=== PATIENT | male | born 1955 | race African-American/Black ===

== ENCOUNTER → 2016-12-14 | Outpatient (CLI) | payer MEDICAID ==
[~2016-12-14] MED LIST: ASPI81CH43 PO; BACL10TA PO; ENAL5TAB92; GABA-339 PO; GABA300C8 PO; GLIM2TAB33; GLIM4TAB42 PO; IBUP600T27; METF-316 PO; NITR400A5 TL; TAMS0.4C36 PO; TOLT1TAB OR; TRIA37.577
[2016-12-14 10:00] VITALS: BP 152/70
[2016-12-14 10:40] VITALS: BP 148/68
[2016-12-14 12:14] LABS: Basophils # (auto) 0 uL; Basophils % (auto) 0.3 % (0.0-2.0); Eosinophils # (auto) 0.2 uL; Eosinophils % (auto) 4.3 % (0.0-7.0); Hematocrit 39.6 % (41.0-53.0); Hemoglobin 13.3 g/dL (13.5-17.5); Lymphocytes # (auto) 1.5 uL; Lymphocytes % (auto) 34.4 % (10.0-50.0); Mean Corpuscular Hemoglobin 30.2 pg (28.0-32.0); Mean Corpuscular Hgb Conc. 33.5 g/dL (32.0-36.0); Mean Corpuscular Volume 90.2 fL (80.0-100.0); Mean Platelet Volume 9.7 fL (7.4-10.4); Monocytes # (auto) 0.6 uL; Neutrophils # (auto) 2.2 uL; Platelet Count (auto) 232 10^3/uL (140-450); White Blood Cell 4.5 10^3/uL (4.4-10.8)
[2016-12-14 12:28] LABS: INR 0.98 (0.9-1.15); Partial Thromboplastin Time 27.3 sec (22.64-33.71); Prothrombin Time 10.1 sec (9.37-12.3)
[2016-12-14 12:45] LABS: BUN/Creatinine Ratio 8.1; Calcium 8.8 mg/dL (8.5-10.1); Potassium 4.7 mmol/L (3.5-5.1)
== END | disposition home or self-care (01) ==
LOC: Rad HDHVI 09:42
PROVIDERS: ATTEND Internal Medicine Cardiovascular Disease
DX: I10 Essential (primary) hypertension (principal); D64.9 Anemia, unspecified; R79.1 Abnormal coagulation profile
CPT/HCPCS: 36415; 71020; 80048; 82962; 85025; 85610; 85730; 93005; G0463

== ENCOUNTER 2016-12-16 09:08 | Inpatient (IN) | payer MEDICAID ==
[~2016-12-16] VITALS: Ht 185.4 cm; Wt 123.5 kg
[~2016-12-16 09:08] MED LIST changes: -ASPI81CH43 PO; -ENAL5TAB92; -GABA-339 PO; -GABA300C8 PO; -IBUP600T27; -NITR400A5 TL; -TRIA37.577
[2016-12-16] MEDS ORDERED: IOHEXOL 350 MG/ML 100ML IJ ONE (10:45)
[2016-12-16] MEDS ORDERED: LIDOCAINE 2%HCL (LOCAL ANESTH.) INJ 20ML MDV ONE (10:45)
[2016-12-16] MEDS ORDERED: fentaNYL CITRATE 100 MCG/2 ML VL ONE (11:55)
[2016-12-16] MEDS ORDERED: MIDAZOLAM HCL 1MG/1ML-2 ML VIAL ONE (11:55)
[2016-12-16] MEDS ORDERED: EPTIFIBATIDE INJ (2MG/ML) 10ML VIAL IV ONE (11:55)
[2016-12-16] MEDS ORDERED: SODIUM CHL 0.9% 50 ML ONE (11:55)
[2016-12-16] MEDS ORDERED: ANGIOMAX 250 MG VIAL IV ONE (11:55)
[2016-12-16] MEDS ORDERED: PRASUGREL HCL 10 MG TAB ONE ×2 (12:47→12:52)
[2016-12-16] MEDS ORDERED: ASPirin 81 mg TAB ONE (12:48)
[2016-12-16] MEDS ORDERED: HYDROmorphone HCL 2 MG/ML VL ONE (13:01)
[2016-12-16] MEDS ORDERED: SODIUM CHLORIDE 0.9% 1,000 ML IV SCH (13:28)
[2016-12-16] MEDS ORDERED: HYDROcodone-ACET 5/325MG TAB PO PRN (13:30)
[2016-12-16] MEDS ORDERED: NITROGLYCERIN 0.4 MG SL TAB SL PRN (13:30)
[2016-12-16] MEDS ORDERED: MORPHINE SULF INJ 2 MG/ML SYRINGE 1ML IV PRN (13:30)
[2016-12-16] MEDS ORDERED: ONDANSETRON HCL 4 MG/2 ML VIAL IV PRN (13:30)
[2016-12-16] MEDS ORDERED: ACETAMINOPHEN 500 MG TAB PO PRN (13:30)
[2016-12-16] MEDS ORDERED: DEXTROSE (50%) 50ML SYRG IV PRN (13:45)
[2016-12-16] MEDS ORDERED: BACLOFEN 10 MG TAB PO PRN (13:45)
[2016-12-16] MEDS: SODIUM CHLOR 0.9% PF (SALINE LOCK) 10ML VIAL IV SCH ×2 (14:00→21:20)
[2016-12-16 15:14] VITALS: BP 189/88
[2016-12-16 17:00] VITALS: BP 166/93
[2016-12-16] MEDS ORDERED: ACCU-CHEK COMFORT CURVE STRIP VI SCH (17:00)
[2016-12-16] MEDS: InsuLIN REG 1unit/0.01ml Soln (100units/ml) SC SCH ×2 (17:00→21:24)
[2016-12-16] MEDS ORDERED: METF-312 PO (18:48)
[2016-12-16] MEDS ORDERED: AMLO1TAB92 PO (18:50)
[2016-12-16] MEDS ORDERED: MONT10TA34 PO (18:51)
[2016-12-16] MEDS ORDERED: CHOL20007 PO (18:51)
[2016-12-16] MEDS ORDERED: NOR5T PO (18:52)
[2016-12-16] MEDS ORDERED: MORP30TA PO (18:53)
[2016-12-16] MEDS: GLIMEPIRIDE 2 MG TAB PO SCH (21:21)
[2016-12-16] MEDS: TOLTERODINE TARTRATE 1 MG TAB PO SCH (21:22)
[2016-12-16 21:30] VITALS: BP 141/95
[2016-12-16] MEDS ORDERED: GLIMEPIRIDE PO SCH (22:00)
[2016-12-17] MEDS: SODIUM CHLOR 0.9% PF (SALINE LOCK) 10ML VIAL IV SCH ×2 (05:08→14:00)
[2016-12-17 05:10] VITALS: BP 157/68
[2016-12-17] MEDS: InsuLIN REG 1unit/0.01ml Soln (100units/ml) SC SCH ×2 (06:17→11:28)
[2016-12-17 08:32] VITALS: BP 130/96
[2016-12-17] MEDS: TOLTERODINE TARTRATE 1 MG TAB PO SCH (09:55)
[2016-12-17] MEDS: GLIMEPIRIDE 2 MG TAB PO SCH (09:56)
[2016-12-17] MEDS ORDERED: TAMSULOSIN HYDROCHLORIDE 0.4 MG CAP PO SCH (10:00)
[2016-12-17] MEDS ORDERED: PRASUGREL HCL 10 MG TAB PO SCH (10:00)
[2016-12-17 13:00] VITALS: BP 130/108
[2016-12-17 13:56] VITALS: BP 130/96
== END 2016-12-17 14:25 | disposition home or self-care (01) | DRG 175 ==
LOC: CATH 09:08 → TELE-E-ADS 09:09 → TELE-WESTW 15:14
PROVIDERS: ADMIT Internal Medicine Cardiovascular Disease; ATTEND Internal Medicine Cardiovascular Disease
PROC: 027135Z Dilation of Coronary Artery, Two Arteries with Two Drug-eluting Intraluminal Devices, Percutaneous Approach (ICD-10-PCS; principal; 2016-12-16)
PROC: 02703ZZ Dilation of Coronary Artery, One Artery, Percutaneous Approach (ICD-10-PCS; 2016-12-16)
PROC: 4A023N7 Measurement of Cardiac Sampling and Pressure, Left Heart, Percutaneous Approach (ICD-10-PCS; 2016-12-16)
PROC: B2111ZZ Fluoroscopy of Multiple Coronary Arteries using Low Osmolar Contrast (ICD-10-PCS; 2016-12-16)
DX: I25.10 Atherosclerotic heart disease of native coronary artery without angina pectoris (principal); I10 Essential (primary) hypertension; I49.8 Other specified cardiac arrhythmias; E78.5 Hyperlipidemia, unspecified; Z82.49 Family history of ischemic heart disease and other diseases of the circulatory system
CPT/HCPCS: 82962; 92920; 92928; 92929; 93458; 99152; C1874; C1887; J1815; J2250

== ENCOUNTER → 2017-09-27 | Outpatient (CLI) | payer MEDICAID ==
[~2017-09-27] MED LIST changes: +AMLO1TAB92 PO; +ASPirin 81 mg TAB PO ONE; +CHOL20007 PO; +HYDR-4683 PO; -METF-316 PO; +METF-370 PO; +METF-372 PO; +MONT10TA34 PO; +MORP30TA PO; +NITROGLYCERIN 0.4 MG SL TAB SL ONE; +SODIUM CHLOR 0.9% PF (SALINE LOCK) 10ML VIAL IV ONE
[2017-09-27 11:00] VITALS: BP 148/80
== END | disposition home or self-care (01) ==
LOC: CHF HDHVI 10:16
PROVIDERS: ATTEND Internal Medicine Cardiovascular Disease
DX: I20.9 Angina pectoris, unspecified (principal); I10 Essential (primary) hypertension; E11.9 Type 2 diabetes mellitus without complications; D64.9 Anemia, unspecified
CPT/HCPCS: 82962; 93005; G0463

== ENCOUNTER → 2017-12-26 | Outpatient (CLI) | payer MEDICAID ==
[~2017-12-26] MED LIST changes: +AMLO5TAB2 PO; +ASPI81TA13 PO; -ASPirin 81 mg TAB PO ONE; +BUDE0.253 IN; +HYDR-531 PO; +LEVEMIR SC; +LOSA100T27 PO; +NITR0.4S29 SL; -NITROGLYCERIN 0.4 MG SL TAB SL ONE; +SIMV10TA84 PO; -SODIUM CHLOR 0.9% PF (SALINE LOCK) 10ML VIAL IV ONE; -TOLT1TAB OR; +TOLT1TAB14 OR; +TRIA75TA55 PO; +TRIATAB3 PO
[2017-12-26 10:30] VITALS: BP 133/76
[2017-12-26 11:12] VITALS: BP 140/71
[2017-12-26 16:04] LABS: Basophils # (auto) 0 uL; Basophils % (auto) 0.5 % (0.0-2.0); Eosinophils # (auto) 0.2 uL; Eosinophils % (auto) 3.8 % (0.0-7.0); Hemoglobin 13.2 g/dL (13.5-17.5); Lymphocytes # (auto) 1.4 uL; Lymphocytes % (auto) 28.1 % (10.0-50.0); Mean Corpuscular Hemoglobin 31.2 pg (28.0-32.0); Mean Corpuscular Hgb Conc. 33.8 g/dL (32.0-36.0); Mean Corpuscular Volume 92.5 fL (80.0-100.0); Monocytes # (auto) 0.7 uL; Monocytes % (auto) 13.6 % (0.0-12.0); Neutrophils # (auto) 2.7 uL; Nucleated Red Blood Cells % 0.2 %; Platelet Count (auto) 188 10^3/uL (140-450); Red Blood Cells 4.22 10^6/uL (4.5-5.90); Red Cell Distribution Width 14.1 % (11.8-14.3)
[2017-12-26 16:10] LABS: BUN/Creatinine Ratio 15.1; Calcium 8.3 mg/dL (8.5-10.1); Potassium 3.7 mmol/L (3.5-5.1)
[2017-12-26 16:13] LABS: INR 0.95 (0.9-1.15); Partial Thromboplastin Time 29.2 sec (22.64-33.71); Prothrombin Time 10.3 sec (9.37-12.3)
== END | disposition home or self-care (01) ==
LOC: Rad HDHVI 10:14
PROVIDERS: ATTEND Internal Medicine Cardiovascular Disease
DX: Z01.812 Encounter for preprocedural laboratory examination (principal); D64.9 Anemia, unspecified; R79.1 Abnormal coagulation profile; I10 Essential (primary) hypertension
CPT/HCPCS: 36415; 71046; 80048; 85025; 85610; 85730; 93005; G0463

== ENCOUNTER 2017-12-29 07:27 | Inpatient (IN) | payer MEDICAID ==
[~2017-12-29] VITALS: Ht 185.4 cm; Wt 118.6 kg
[~2017-12-29 07:27] MED LIST changes: -AMLO1TAB92 PO; -BACL10TA PO; -CHOL20007 PO; -GLIM2TAB33; -GLIM4TAB42 PO; -HYDR-4683 PO; -METF-370 PO; -METF-372 PO; -MONT10TA34 PO; -MORP30TA PO; -TAMS0.4C36 PO; -TOLT1TAB14 OR; -TRIATAB3 PO
[2017-12-29] MEDS ORDERED: ceFAZolin 1GM/50ML 50 ML IV ONE (08:03)
[2017-12-29] MEDS ORDERED: LIDOCAINE HCL 2 %PF INJ 10ML AMP IJ ONE (08:39)
[2017-12-29] MEDS ORDERED: fentaNYL CITRATE 100 MCG/2 ML VL ONE (08:43)
[2017-12-29] MEDS ORDERED: MIDAZOLAM HCL 1MG/1ML-2 ML VIAL ONE (08:43)
[2017-12-29] MEDS ORDERED: VANCOMYCIN 1GM/250ML 250 ML IV ONE (08:51)
[2017-12-29] MEDS ORDERED: VANCOMYCIN HCL 1000 MG VL ONE (08:51)
[2017-12-29] MEDS ORDERED: IOHEXOL 350 MG/ML 100ML IJ ONE (09:21)
[2017-12-29] MEDS ORDERED: TRIAMTERENE/HCTZ 75/50MG TABLET PO SCH (10:00)
[2017-12-29] MEDS: SIMVASTATIN 10 MG PO SCH (10:00)
[2017-12-29] MEDS ORDERED: ceFAZolin 1GM/50ML 50 ML IV SCH (10:00)
[2017-12-29] MEDS ORDERED: MORPHINE SULFATE 4 MG/ML SYR/VIAL IV PRN (10:00)
[2017-12-29] MEDS ORDERED: NITROGLYCERIN 0.4 MG SL TAB SL PRN (10:00)
[2017-12-29] MEDS ORDERED: DEXTROSE (50%) 50ML SYRG IV PRN (10:00)
[2017-12-29] MEDS ORDERED: ACETAMINOPHEN 325 MG TAB PO PRN (10:00)
[2017-12-29] MEDS ORDERED: LORazepam 0.5 MG TAB PO PRN (10:00)
[2017-12-29] MEDS ORDERED: amLODIPine BESYLATE 5 MG TAB ONE (10:26)
[2017-12-29] MEDS ORDERED: TRIAMTERENE/HCTZ 37.5/25 MG CAP ONE (10:26)
[2017-12-29] MEDS ORDERED: LOSARTAN POTASSIUM 50 MG TAB ONE (10:27)
[2017-12-29] MEDS: TRIAMTERENE/HCTZ 37.5/25 MG CAP PO SCH (10:30)
[2017-12-29] MEDS: LOSARTAN POTASSIUM 50 MG TAB PO SCH (10:30)
[2017-12-29] MEDS: amLODIPine BESYLATE 5 MG TAB PO SCH (10:30)
[2017-12-29] MEDS ORDERED: TRIATAB3 PO (10:35)
[2017-12-29] MEDS: InsuLIN REG 1unit/0.01ml Soln (100units/ml) SC SCH ×3 (10:45→22:06)
[2017-12-29] MEDS: ACCU-CHEK COMFORT CURVE STRIP VI SCH ×3 (10:46→22:06)
[2017-12-29] MEDS: HYDROcodone-ACET 5/325MG TAB PO PRN ×2 (10:46→15:19)
[2017-12-29 12:00] VITALS: BP 157/80
[2017-12-29 13:00] VITALS: BP 157/80
[2017-12-29] MEDS: ceFAZolin 1GM/50ML 50 ML IV SCH ×2 (14:14→22:07)
[2017-12-29 17:15] VITALS: BP 128/78
[2017-12-29] MEDS ORDERED: VANCOMYCIN 1GM/250ML 250 ML IV SCH (22:00)
[2017-12-29 22:28] VITALS: BP 127/80
[2017-12-30 05:05] VITALS: BP 141/76
[2017-12-30] MEDS: ceFAZolin 1GM/50ML 50 ML IV SCH (05:50)
[2017-12-30] MEDS: InsuLIN REG 1unit/0.01ml Soln (100units/ml) SC SCH (06:47)
[2017-12-30] MEDS: ACCU-CHEK COMFORT CURVE STRIP VI SCH (06:47)
[2017-12-30] MEDS ORDERED: INSULIN LANTUS (GLARGINE) 1 /0.01ml (100units/ml) SC SCH (07:00)
[2017-12-30 08:30] VITALS: BP 143/74
[2017-12-30 08:46] LABS: Basophils # (auto) 0 uL; Basophils % (auto) 0.2 % (0.0-2.0); Eosinophils # (auto) 0.1 uL; Eosinophils % (auto) 2.3 % (0.0-7.0); Hematocrit 41.7 % (41.0-53.0); Hemoglobin 13.9 g/dL (13.5-17.5); Lymphocytes # (auto) 1.8 uL; Lymphocytes % (auto) 28.5 % (10.0-50.0); Mean Corpuscular Hemoglobin 30.6 pg (28.0-32.0); Mean Corpuscular Hgb Conc. 33.2 g/dL (32.0-36.0); Mean Corpuscular Volume 92.1 fL (80.0-100.0); Monocytes # (auto) 0.7 uL; Monocytes % (auto) 10.5 % (0.0-12.0); Neutrophils # (auto) 3.6 uL; Neutrophils % (auto) 58.5 % (37.0-80.0); Nucleated Red Blood Cells % 0.1 %; Platelet Count (auto) 213 10^3/uL (140-450); Red Blood Cells 4.53 10^6/uL (4.5-5.90); White Blood Cell 6.2 10^3/uL (4.4-10.8)
[2017-12-30 09:04] LABS: BUN/Creatinine Ratio 12.9; Calcium 8.4 mg/dL (8.5-10.1); Potassium 3.7 mmol/L (3.5-5.1)
[2017-12-30] MEDS: amLODIPine BESYLATE 5 MG TAB PO SCH (09:36)
[2017-12-30] MEDS: LOSARTAN POTASSIUM 50 MG TAB PO SCH (09:37)
[2017-12-30] MEDS: SIMVASTATIN 10 MG PO SCH (09:37)
[2017-12-30] MEDS: TRIAMTERENE/HCTZ 37.5/25 MG CAP PO SCH (09:37)
[2017-12-30 11:24] VITALS: BP 143/74
== END 2017-12-30 11:45 | disposition home or self-care (01) | DRG 171 ==
LOC: CATH 07:27 → TELE-EAST 07:28
PROVIDERS: ADMIT Internal Medicine Cardiovascular Disease; ATTEND Internal Medicine Cardiovascular Disease
PROC: 0JH606Z Insertion of Pacemaker, Dual Chamber into Chest Subcutaneous Tissue and Fascia, Open Approach (ICD-10-PCS; principal; 2017-12-29)
PROC: 02HK3JZ Insertion of Pacemaker Lead into Right Ventricle, Percutaneous Approach (ICD-10-PCS; 2017-12-29)
PROC: 02H63JZ Insertion of Pacemaker Lead into Right Atrium, Percutaneous Approach (ICD-10-PCS; 2017-12-29)
DX: I49.5 Sick sinus syndrome (principal); I10 Essential (primary) hypertension; E78.5 Hyperlipidemia, unspecified; I73.9 Peripheral vascular disease, unspecified
CPT/HCPCS: 33208; 36415; 71045; 80048; 82962; 85025; 93005; 99152; C1785; J0690; J1815; J2250

== ENCOUNTER 2018-02-14 12:07 | Emergency (ER) | payer MEDICAID ==
[~2018-02-14] VITALS: Ht 185.4 cm; Wt 117.9 kg
[~2018-02-14 12:07] MED LIST changes: -TRIA75TA55 PO; +TRIATAB3 PO
[2018-02-14 12:46] VITALS: BP 134/82
== END 2018-02-14 14:26 | disposition left against medical advice (07) ==
LOC: ER 12:07
DX: M79.671 Pain in right foot (principal); E11.9 Type 2 diabetes mellitus without complications; I11.0 Hypertensive heart disease with heart failure; I50.9 Heart failure, unspecified; E78.5 Hyperlipidemia, unspecified; Z79.4 Long term (current) use of insulin; Z79.82 Long term (current) use of aspirin; Z83.3 Family history of diabetes mellitus; Z95.0 Presence of cardiac pacemaker

== ENCOUNTER 2018-11-28 17:00 | Emergency (ER) | payer MEDICAID ==
[~2018-11-28] VITALS: Ht 185.4 cm; Wt 116.6 kg
[~2018-11-28 17:00] MED LIST changes: +AMLO5TAB13 PO; -AMLO5TAB2 PO; +ASPI1TAB19 PO; -ASPI81TA13 PO; +LOSA-49 PO; -LOSA100T27 PO
[2018-11-28 17:06] VITALS: BP 164/88
[2018-11-28 17:26] LABS: Basophils # (auto) 0 uL; Basophils % (auto) 0.5 % (0.0-2.0); Eosinophils # (auto) 0.1 uL; Eosinophils % (auto) 1.8 % (0.0-7.0); Hematocrit 44.9 % (41.0-53.0); Hemoglobin 15.2 g/dL (13.5-17.5); Lymphocytes # (auto) 1.9 uL; Lymphocytes % (auto) 25.5 % (10.0-50.0); Mean Corpuscular Hgb Conc. 33.8 g/dL (32.0-36.0); Mean Corpuscular Volume 91.6 fL (80.0-100.0); Monocytes # (auto) 0.9 uL; Monocytes % (auto) 12.1 % (0.0-12.0); Neutrophils # (auto) 4.5 uL; Neutrophils % (auto) 60.1 % (37.0-80.0); Platelet Count (auto) 247 10^3/uL (140-450); Red Blood Cells 4.91 10^6/uL (4.5-5.90); Red Cell Distribution Width 14.1 % (11.8-14.3); White Blood Cell 7.5 10^3/uL (4.4-10.8)
[2018-11-28 17:43] LABS: Anion Gap 7 (5-15); Blood Urea Nitrogen 15 mg/dL (7-18); Calcium 8.6 mg/dL (8.5-10.1); Carbon Dioxide 23 mmol/L (21-32); Chloride 109 mmol/L (98-107); Glucose 126 mg/dL (74-106); Magnesium 2.3 mg/dL (1.6-2.6); Potassium 3.5 mmol/L (3.5-5.1); Sodium 139 mmol/L (136-145)
[2018-11-28 17:49] LABS: Alanine Aminotransferase 28 U/L (16-61); Alkaline Phosphatase 121 U/L (45-117); Aspartate Aminotransferase 18 U/L (15-37); BUN/Creatinine Ratio 12.4; Bilirubin, Total 0.3 mg/dL (0.2-1.0); GFR African American 78 mL/min; GFR Non-African American 65 mL/min; Total Protein 7.7 g/dL (6.4-8.2)
== END 2018-11-29 00:23 | disposition left against medical advice (07) ==
LOC: ER 17:00
DX: R07.9 Chest pain, unspecified (principal); Z53.21 Procedure and treatment not carried out due to patient leaving prior to being seen by health care provider
CPT/HCPCS: 36415; 80053; 83735; 84484; 85025; 93005

== ENCOUNTER 2019-02-10 18:35 | Emergency (ER) | payer MEDICAID ==
[~2019-02-10] VITALS: Ht 185.4 cm; Wt 120.2 kg
[2019-02-10 19:26] LABS: Chloride 113 mmol/L (98-107); Potassium 3.6 mmol/L (3.5-5.1); Sodium 140 mmol/L (136-145)
[2019-02-10 19:27] LABS: Basophils # (auto) 0 uL; Basophils % (auto) 0.3 % (0.0-2.0); Eosinophils # (auto) 0.1 uL; Eosinophils % (auto) 1.3 % (0.0-7.0); Hematocrit 44.4 % (41.0-53.0); Hemoglobin 15.1 g/dL (13.5-17.5); Lymphocytes # (auto) 1.8 uL; Mean Corpuscular Hgb Conc. 33.9 g/dL (32.0-36.0); Mean Corpuscular Volume 91.4 fL (80.0-100.0); Monocytes % (auto) 15.4 % (0.0-12.0); Neutrophils # (auto) 3.6 uL; Nucleated Red Blood Cells % 0.1 %; Platelet Count (auto) 229 10^3/uL (140-450); Red Blood Cells 4.86 10^6/uL (4.5-5.90); Red Cell Distribution Width 13.8 % (11.8-14.3); White Blood Cell 6.6 10^3/uL (4.4-10.8)
[2019-02-10 19:29] LABS: Albumin 3.9 g/dL (3.4-5.0); Anion Gap 9 (5-15); Blood Urea Nitrogen 11 mg/dL (7-18); Calcium 8.4 mg/dL (8.5-10.1); Carbon Dioxide 18 mmol/L (21-32); Glucose 141 mg/dL (74-106)
[2019-02-10 19:33] LABS: Alanine Aminotransferase 27 U/L (16-61); Aspartate Aminotransferase 23 U/L (15-37); BUN/Creatinine Ratio 10.3; Bilirubin, Total 0.5 mg/dL (0.2-1.0); GFR African American 90 mL/min; GFR Non-African American 74 mL/min; Total Protein 7.7 g/dL (6.4-8.2)
[2019-02-10 19:34] LABS: Alkaline Phosphatase 136 U/L (45-117)
[2019-02-10 19:51] LABS: INR 0.96 (0.9-1.15); Partial Thromboplastin Time 29.4 sec (23.78-33.04); Prothrombin Time 10.3 sec (9.27-12.13)
[2019-02-10] MEDS ORDERED: IOHEXOL 300 MG/ML 100ML BOTTLE IJ ONE (21:42)
[2019-02-10 21:50] LABS: Urine Bacteria NONE SEEN /hpf (None Seen); Urine Blood Negative /uL (Negative); Urine Mucus FEW (None Seen); Urine Specific Gravity 1.031 (1.001-1.035); Urine WBC 2 /hpf (0 - 3)
[2019-02-10 22:04] LABS: Amylase 92 U/L (25-115); Lipase 733 U/L (73-393)
[2019-02-10 22:45] VITALS: BP 110/58
== END 2019-02-10 23:20 | disposition home or self-care (01) ==
LOC: EDUNIT# 18:35 → EDBD 18:35 → ER 18:35
DX: K40.20 Bilateral inguinal hernia, without obstruction or gangrene, not specified as recurrent (principal); I11.0 Hypertensive heart disease with heart failure; I50.9 Heart failure, unspecified; E11.9 Type 2 diabetes mellitus without complications; E78.00 Pure hypercholesterolemia, unspecified; I25.2 Old myocardial infarction; Z79.4 Long term (current) use of insulin; Z79.82 Long term (current) use of aspirin; Z79.899 Other long term (current) drug therapy
CPT/HCPCS: 36415; 70450; 71045; 74177; 80053; 81001; 82150; 83605; 83690; 84484; 85025; 85610; 85730; 93005; 99284; Q9967

== ENCOUNTER → 2019-03-20 | Outpatient (CLI) | payer MEDICAID | END | disposition home or self-care (01) | LOC: Rad HDHVI 09:11 | PROVIDERS: ATTEND Internal Medicine Cardiovascular Disease | DX: J44.9 Chronic obstructive pulmonary disease, unspecified (principal); I49.5 Sick sinus syndrome; I11.0 Hypertensive heart disease with heart failure; I50.9 Heart failure, unspecified | CPT/HCPCS: 93306 ==

== ENCOUNTER 2019-09-11 23:56 | Emergency (ER) | payer MEDICAID ==
[~2019-09-11] VITALS: Ht 185.4 cm; Wt 124.7 kg
[~2019-09-11 23:56] MED LIST changes: -AMLO5TAB13 PO; +AMLO5TAB15 PO; +LOSA-39 PO; -LOSA-49 PO
[2019-09-12 00:42] LABS: Basophils # (auto) 0 uL; Basophils % (auto) 0.2 % (0.0-2.0); Eosinophils # (auto) 0.2 uL; Eosinophils % (auto) 2.4 % (0.0-7.0); Hemoglobin 13.6 g/dL (13.5-17.5); Lymphocytes # (auto) 2.1 uL; Lymphocytes % (auto) 29.7 % (10.0-50.0); Mean Corpuscular Hemoglobin 31.8 pg (28.0-32.0); Mean Corpuscular Hgb Conc. 34.9 g/dL (32.0-36.0); Monocytes # (auto) 0.9 uL; Monocytes % (auto) 12.4 % (0.0-12.0); Neutrophils # (auto) 3.9 uL; Neutrophils % (auto) 55.3 % (37.0-80.0); Platelet Count (auto) 218 10^3/uL (140-450); Red Blood Cells 4.28 10^6/uL (4.5-5.90); Red Cell Distribution Width 13.7 % (11.8-14.3); White Blood Cell 7.1 10^3/uL (4.4-10.8)
[2019-09-12 01:03] LABS: Alanine Aminotransferase 24 U/L (16-61); Albumin 3.7 g/dL (3.4-5.0); Anion Gap 8 (5-15); Aspartate Aminotransferase 13 U/L (15-37); BUN/Creatinine Ratio 11.4; Blood Urea Nitrogen 13 mg/dL (7-18); Calcium 8.3 mg/dL (8.5-10.1); Carbon Dioxide 20 mmol/L (21-32); Chloride 108 mmol/L (98-107); GFR African American 84 mL/min; GFR Non-African American 69 mL/min; Glucose 179 mg/dL (74-106); Potassium 3.8 mmol/L (3.5-5.1); Sodium 136 mmol/L (136-145)
[2019-09-12 01:08] LABS: Alkaline Phosphatase 123 U/L (45-117); Bilirubin, Total 0.2 mg/dL (0.2-1.0); Total Protein 7.1 g/dL (6.4-8.2)
[2019-09-12] MEDS ORDERED: LIDOCAINE W/ EPINEPHRINE 2% INJ 20ML VIAL IJ ONE (01:30)
[2019-09-12 02:34] LABS: Urine Bacteria NONE SEEN /hpf (None Seen); Urine Blood Negative /uL (Negative); Urine Specific Gravity 1.002 (1.001-1.035); Urine WBC <1 /hpf (0 - 3)
[2019-09-12 02:41] LABS: Amphetamine Screen, Urine NEGATIVE (NEGATIVE); Barbiturate Scree,Urine NEGATIVE (NEGATIVE); Benzodiazephine Screen, Urine NEGATIVE (NEGATIVE); Cannabinoid Screen, Urine POSITIVE (NEGATIVE); Cocaine Screen, Urine NEGATIVE (NEGATIVE); Opiate Scree,Urine NEGATIVE (NEGATIVE); Phencyclidine Screen, Urine NEGATIVE (NEGATIVE)
[2019-09-12 04:11] VITALS: BP 155/83
== END 2019-09-12 04:19 | disposition home or self-care (01) ==
LOC: ER 23:57
DX: S01.02XA Laceration with foreign body of scalp, initial encounter (principal); I95.1 Orthostatic hypotension; R51 Headache; I11.0 Hypertensive heart disease with heart failure; I50.9 Heart failure, unspecified; E11.9 Type 2 diabetes mellitus without complications; E78.5 Hyperlipidemia, unspecified; I25.2 Old myocardial infarction; F12.10 Cannabis abuse, uncomplicated; Z95.0 Presence of cardiac pacemaker; Z98.61 Coronary angioplasty status; W06.XXXA Fall from bed, initial encounter; Y93.89 Activity, other specified; Y92.092 Bedroom in other non-institutional residence as the place of occurrence of the external cause; Y99.8 Other external cause status
CPT/HCPCS: 12002; 36415; 70450; 71045; 80053; 80307; 80320; 81001; 84484; 85025; 93005

== ENCOUNTER → 2021-03-04 | Outpatient (CLI) | payer MEDICAID ==
[~2021-03-04] VITALS: Ht 185.4 cm; Wt 120.7 kg
[~2021-03-04] MED LIST changes: +ADENOSINE 101 MG in GIVE UN-DILUTED 0 ML IV ONE; +ADENOSINE 90 MG/30 ML INJ IV ONE; +AMLO-489 PO; -AMLO5TAB15 PO
== END | disposition home or self-care (01) ==
LOC: Rad HDHVI 08:00
PROVIDERS: ATTEND Internal Medicine Cardiovascular Disease
DX: I49.5 Sick sinus syndrome (principal); R60.9 Edema, unspecified; R06.02 Shortness of breath; R07.89 Other chest pain; E78.5 Hyperlipidemia, unspecified; Z95.0 Presence of cardiac pacemaker
CPT/HCPCS: 78452; 93005; 96374; 96375; A9500; J0153

== ENCOUNTER → 2022-07-05 | Outpatient (CLI) | payer MEDICARE, MEDICAID ==
[~2022-07-05] MED LIST changes: -ADENOSINE 101 MG in GIVE UN-DILUTED 0 ML IV ONE; -ADENOSINE 90 MG/30 ML INJ IV ONE
[2022-07-05 13:34] LABS: Basophils # (auto) 0 10 ^3/uL (0-0.2); Basophils % (auto) 0.2 % (0.0-2.0); Eosinophils # (auto) 0.1 10 ^3/uL (0-0.8); Hemoglobin 14.1 g/dL (13.5-17.5); Lymphocytes # (auto) 1.9 10 ^3/uL (0.4-5.4); Lymphocytes % (auto) 36.6 % (10.0-50.0); Mean Corpuscular Hemoglobin 29.4 pg (28.0-32.0); Mean Corpuscular Hgb Conc. 32.8 g/dL (32.0-36.0); Mean Corpuscular Volume 89.7 fL (80.0-100.0); Monocytes # (auto) 0.7 10 ^3/uL (0-1.3); Monocytes % (auto) 13.7 % (0.0-12.0); Neutrophils # (auto) 2.5 10 ^3/uL (1.6-8.6); Neutrophils % (auto) 47.5 % (37.0-80.0); Nucleated Red Blood Cells % 0.1 %; Red Blood Cells 4.79 10^6/uL (4.5-5.90); Red Cell Distribution Width 14.9 % (11.8-14.3); White Blood Cell 5.2 10^3/uL (4.4-10.8)
[2022-07-05 13:38] LABS: Urine Blood Negative /uL (Negative); Urine Specific Gravity 1.028 (1.001-1.035)
[2022-07-05 13:41] LABS: Albumin 3.7 g/dL (3.4-5.0); Anion Gap 5 (5-15); Blood Urea Nitrogen 11 mg/dL (7-18); Calcium 8.9 mg/dL (8.5-10.1); Carbon Dioxide 22 mmol/L (21-32); Chloride 112 mmol/L (98-107); Sodium 139 mmol/L (136-145)
[2022-07-05 13:48] LABS: Alanine Aminotransferase 26 U/L (16-61); Alkaline Phosphatase 99 U/L (45-117); Aspartate Aminotransferase 14 U/L (15-37); BUN/Creatinine Ratio 9.6; Bilirubin, Direct < 0.1 mg/dL (0-0.2); Bilirubin, Total 0.2 mg/dL (0.2-1.0); Cholesterol 183 mg/dL (< 200); GFR African American 82 mL/min; GFR Non-African American 68 mL/min; Glucose 131 mg/dL (74-106); HDL Cholesterol 37 mg/dL (40-59); LDL Cholesterol 124 mg/dL (< 100); Total Protein 7.2 g/dL (6.4-8.2); Triglycerides 138 mg/dL (< 150)
== END | disposition home or self-care (01) ==
LOC: Rad HDHVI 11:23
PROVIDERS: ATTEND Internal Medicine Cardiovascular Disease
DX: M19.012 Primary osteoarthritis, left shoulder (principal); C61 Malignant neoplasm of prostate; I10 Essential (primary) hypertension; E55.9 Vitamin D deficiency, unspecified; D51.3 Other dietary vitamin B12 deficiency anemia; D64.9 Anemia, unspecified; E11.9 Type 2 diabetes mellitus without complications; R00.2 Palpitations; R53.1 Weakness; R30.0 Dysuria
CPT/HCPCS: 36415; 73030; 80048; 80061; 80076; 81003; 82306; 83036; 84153; 84403; 84443; 85025

== ENCOUNTER → 2022-07-08 | Outpatient (CLI) | payer MEDICARE, MEDICAID | END | disposition home or self-care (01) | LOC: Rad HDHVI 12:50 | PROVIDERS: ATTEND Internal Medicine Cardiovascular Disease | DX: I35.8 Other nonrheumatic aortic valve disorders (principal); R06.02 Shortness of breath; E78.5 Hyperlipidemia, unspecified | CPT/HCPCS: 93306 ==

== ENCOUNTER → 2022-07-22 | Outpatient (CLI) | payer MEDICARE, MEDICAID ==
[~2022-07-22] VITALS: Ht 185.4 cm; Wt 120.2 kg
[~2022-07-22] MED LIST changes: +ADENOSINE 101 MG in GIVE UN-DILUTED 0 ML IV ONE; +ADENOSINE 90 MG/30 ML INJ IV ONE
== END | disposition home or self-care (01) ==
LOC: Rad HDHVI 08:47
PROVIDERS: ATTEND Internal Medicine Cardiovascular Disease
DX: I34.0 Nonrheumatic mitral (valve) insufficiency (principal); R07.9 Chest pain, unspecified; R06.02 Shortness of breath; I49.5 Sick sinus syndrome; J44.9 Chronic obstructive pulmonary disease, unspecified; I25.2 Old myocardial infarction; I25.10 Atherosclerotic heart disease of native coronary artery without angina pectoris; I10 Essential (primary) hypertension; E78.5 Hyperlipidemia, unspecified; E11.9 Type 2 diabetes mellitus without complications; F17.210 Nicotine dependence, cigarettes, uncomplicated; Z82.49 Family history of ischemic heart disease and other diseases of the circulatory system; Z95.0 Presence of cardiac pacemaker
CPT/HCPCS: 78452; 93005; 96374; 96375; A9500; J0153